=== PATIENT | female | born 1995 | race Caucasian/White ===

== ENCOUNTER 2020-04-14 13:39 | Emergency (ER) | payer OTHER ==
[~2020-04-14] VITALS: Ht 167.6 cm; Wt 65.8 kg
[2020-04-14 13:40] VITALS: BP 109/60
[2020-04-14 13:51] LABS: ABSOLUTE NEUTROPHILS 12.8 thou/uL (1.4-8.2); BASOPHILS 1.1 % (0.0-2.0); EOSINOPHILS 0.8 % (0.0-3.0); HEMATOCRIT 26.8 % (37.0-47.0); HEMOGLOBIN 8.4 gm/dL (12.0-15.0); LYMPHOCYTES 14.4 % (24.0-44.0); MCH 19.7 pg (26.0-34.0); MCHC 31.3 g/dL (28.0-37.0); MCV 62.8 fL (80.0-100.0); MONOCYTES 3.4 % (1.0-8.0); PLATELET COUNT 361 thou/uL (150-400); POLYS 80.3 % (36.0-66.0); RBC 4.26 mil/uL (4.20-5.00); RDW 18.6 % (10.5-14.5)
[2020-04-14 14:24] LABS: CALCIUM 8.9 mg/dL (8.5-10.1); CREATININE 0.7 mg/dL (0.6-1.0); POTASSIUM 4.2 mmol/L (3.5-5.1)
[2020-04-14 14:47] LABS: ANISOCYTOSIS 1+; HYPOCHROMASIA 1+; MICROCYTES 1+
== END 2020-04-14 14:26 | disposition short-term general hospital (02) ==
LOC: ER 13:39
PROVIDERS: Emergency Medicine
DX: O75.82 Onset (spontaneous) of labor after 37 completed weeks of gestation but before 39 completed weeks gestation, with delivery by (planned) cesarean section (principal); Z3A.41 41 weeks gestation of pregnancy

== ENCOUNTER 2020-11-04 08:12 | Inpatient (IN) | payer OTHER ==
[2020-11-04] VITALS (8 sets, daily range): BP systolic 65–109; BP diastolic 28–74
[~2020-11-04] VITALS: Ht 167.6 cm; Wt 54.0 kg
[2020-11-04 08:52] LABS: ABSOLUTE NEUTROPHILS 11.3 thou/uL (1.4-8.2); BASOPHILS 0.3 % (0.0-2.0); EOSINOPHILS 0.7 % (0.0-3.0); HEMATOCRIT 29.3 % (37.0-47.0); HEMOGLOBIN 9.2 gm/dL (12.0-15.0); LYMPHOCYTES 20.6 % (24.0-44.0); MCHC 31.3 g/dL (28.0-37.0); MCV 76.5 fL (80.0-100.0); MONOCYTES 4.2 % (1.0-8.0); PLATELET COUNT 429 thou/uL (150-400); POLYS 74.2 % (36.0-66.0); RBC 3.83 mil/uL (4.20-5.00); RDW 17.8 % (10.5-14.5); WBC 15.2 thou/uL (4.0-11.0)
[2020-11-04 09:03] LABS: CALCIUM 8.1 mg/dL (8.5-10.1); CREATININE 0.7 mg/dL (0.6-1.0); POTASSIUM 3.4 mmol/L (3.5-5.1)
[2020-11-04 11:24] LABS: HEMATOCRIT 20.6 % (37.0-47.0); MCH 25.3 pg (26.0-34.0); MCHC 31.9 g/dL (28.0-37.0); MCV 79.3 fL (80.0-100.0); RBC 2.6 mil/uL (4.20-5.00); WBC 12.3 thou/uL (4.0-11.0)
[2020-11-04 11:25] LABS: HEMOGLOBIN 6.6 gm/dL (12.0-15.0)
[2020-11-04 14:38] LABS: HEMOGLOBIN 8.3 gm/dL (12.0-15.0)
--- NOTE | 2020-11-05 02:43 | NUR ---
PT ADMITED FROM THE ER AT 2210 WITH C/O VAGINAL BLEEDING AND ABDOMINAL CRAMPING STARTED ON THE 10/03/2020 AFTER TAKING PILLS ON THE 10/30/2020.PT IS A/O X4.PT CA,E UP TO THE UNIT IN STABLE MEDICAL CONDITION AND A D AND C WAS DONE AND 3UNITS OF BLOOD ADMINISTERED.PT ALSO HAD A FALL YESTERDAY IN THE BATHROOM AT HOME BEING BEING RUSHED TO THE HOSPITAL BY BOYFRIEND.V/S STABLE ON ADMISSION AND PT WITH STEADY GAIT.PT EDUCATED TO CALL FOR HELP NEEDED.PT APPEARED TO BE IN NO ACUTE DISTRESS.IV ACCESS ON RT AC WITH NS AT 126CC/HR.PT HAD SPOTTED BLOOD STAIN ON BRIEF.PT VOIDING OK.PT IS NSR ON TELE.WILL CONTINUE TO MONITOR PER POC
[2020-11-05 05:09] VITALS: BP 94/54
[2020-11-05 05:41] LABS: HEMATOCRIT 22.5 % (37.0-47.0); HEMOGLOBIN 7.7 gm/dL (12.0-15.0); MCH 27.4 pg (26.0-34.0); MCV 80.7 fL (80.0-100.0); RBC 2.79 mil/uL (4.20-5.00); RDW 17.7 % (10.5-14.5); WBC 9.9 thou/uL (4.0-11.0)
[2020-11-05] MEDS ORDERED: COLACE100 MG PO (07:52)
[2020-11-05] MEDS ORDERED: FEOSOL325 M1 PO (07:52)
[2020-11-05] MEDS ORDERED: IBUPROFEN 800800 M1 PO (07:52)
[2020-11-05 08:39] VITALS: BP 94/54
[2020-11-05 08:42] VITALS: BP 99/58
--- NOTE | 2020-11-05 11:43 | NUR ---
PT A&OX4, VSS, DENIES PAIN, NAUSEA AND DIZZINESS. IV IN RIGHT AND LEFT AC REMOVED. PATIENT STATES VERY SMALL BLEEDING. PATIENT HAS BRUISE ON FOREHEAD FROM FALL AT HOME. PATIENT HAD CLEAR LIQUIDS FOR BREAKFAST AND NO C/O NAUSEA. PATIENT NSR ON TELE. NO SIGNS OF DISTRESS. PATIENT DISCHARGED HOME AND VERBALIZED UNDERSTANDING OF DISCHARGE PAPERWORK. ALL BELONGINGS WITH PATIENT.
--- NOTE | 2020-11-06 14:04 | PATH ---
[facility] [place] [address] PATHOLOGY RPT PROCEDURE Name: MELANI TREJO Room #: 464-P [facility] IN M.R.#: [id number] Admission: 11/04/20 Date of : 89 Discharge: 11/05/20 Report #: [id number] Path Case #: [id number] [facility] Accession Number: [id number] . 01 Material submitted: . uterus - POC . 01 Clinical history: . MISCARRIAGE,INCOMPLETE . 02 Diagnosis: Products of conception: - Immature hydropic chorionic villi associated with numerous nucleated red blood cells, membranes, as well as inflamed fragments of decidua, see comment. . (IUV:mml; 11/06/2020) QLM 11/06/2020 1128 Local . 02 Comment: Examination shows immature hydropic chorionic villi with numerous nucleated red blood cells, and unipolar trophoblastic proliferation with occasional mitotic figures. Cistern formation, trophoblastic inclusions, or apoptotic bodies within the villi are not identified. Due to the presence of unipolar trophoblastic proliferation, which may be a reactive change, block A has been submitted for DNA ploidy analysis. The result of this will be submitted in an addendum to follow once received. . (IUV:mml; 11/06/2020) . 02 Electronically signed: . Lisa Wick MD, Pathologist NPI- [id number] . 01 Gross description: . The specimen is received in formalin, labeled "Melani Trejo products of conception". Received are multiple segments of pink-quintana to pink-cottrell soft tissue admixed with blood coagulum and spongiform tissue measuring 9.3 x 8.5 x 2.7 cm in aggregate dimensions. A macerated embryo is identified, with a crown-rump measurement of 2.4 cm, upon reconstruction. Both legs are present, however, feet are not discernible grossly. Both arms display 5 fingers each. The eyes are open. The specimen is submitted representatively in cassettes A1 through A3. The embryo is retained within the specimen container. . Also received fresh is a second container of formalin, labeled "Melani Trejo products of conception". Received is a large amount of blood [address] [address] PATHOLOGY RPT PROCEDURE Name: MELANI TREJO Room #: 464-P [facility] IN M.R.#: [id number] Admission: 11/04/20 Date of : [birth year] Discharge: 11/05/20 Report #: [id number] Path Case #: [id number] coagulum measuring 15.5 x 10.8 x 4.8 cm in aggregate dimensions. Sections are not submitted. (CAA; 11/05/2020) QAC/QAC 11/05/2020 1310 Local . 02 Pathologist provided ICD-10: O03.9 . 02 CPT . 951511 Specimen Comment: A courtesy copy of this report has been sent to [phone] Specimen Comment: Report sent to Performed at: [address], [place] [id number] MD Sherwin Chun MD Phone: [phone] Performed at: [address] [id number] MD Lisa Wick MD Phone: [phone]
== END 2020-11-05 11:59 | disposition home or self-care (01) | DRG 770 ==
LOC: ER 08:12 → 4W 11:37 → EROBS 11:37 → 4W 13:00
PROVIDERS: Emergency Medicine; ADMIT Obstetrics & Gynecology; ATTEND Obstetrics & Gynecology
PROC: 30233N1 Transfusion of Nonautologous Red Blood Cells into Peripheral Vein, Percutaneous Approach (ICD-10-PCS; principal; 2020-11-04)
PROC: 10D17ZZ Extraction of Products of Conception, Retained, Via Natural or Artificial Opening (ICD-10-PCS; 2020-11-04)
DX: O03.1 Delayed or excessive hemorrhage following incomplete spontaneous abortion (principal); D62 Acute posthemorrhagic anemia; I95.9 Hypotension, unspecified; Z20.822 Contact with and (suspected) exposure to COVID-19
CPT/HCPCS: 10045; 50101

== ENCOUNTER 2021-09-29 13:04 | Emergency (ER) | payer OTHER ==
[~2021-09-29] VITALS: Ht 167.6 cm; Wt 54.4 kg
[~2021-09-29 13:04] MED LIST: COLACE100 MG PO; FEOSOL325 M1 PO; IBUPROFEN 800800 M1 PO
[2021-09-29 14:35] VITALS: BP 120/69
== END 2021-09-29 16:16 | disposition left against medical advice (07) ==
LOC: ER 13:04
DX: J00 Acute nasopharyngitis [common cold] (principal); Z20.822 Contact with and (suspected) exposure to COVID-19; R11.2 Nausea with vomiting, unspecified; R10.84 Generalized abdominal pain; Z53.21 Procedure and treatment not carried out due to patient leaving prior to being seen by health care provider